=== PATIENT | female | born 1955 | race Caucasian/White ===

== ENCOUNTER 2018-10-29 05:49 | Inpatient (IN) | payer MEDICARE | END 2018-10-30 15:05 | disposition home or self-care (01) | LOC: PAS IN 05:49 → ORTHO 4S 12:25 | PROC: 0RRK0JZ Replacement of Left Shoulder Joint with Synthetic Substitute, Open Approach (ICD-10-PCS; principal; 2018-10-29 08:22) | PROC: 0LS40ZZ Reposition Left Upper Arm Tendon, Open Approach (ICD-10-PCS; 2018-10-29 08:22) | DX: M19.012 Primary osteoarthritis, left shoulder (principal); D62 Acute posthemorrhagic anemia ==

== ENCOUNTER 2025-01-06 10:48 | Outpatient (CLI) | payer MEDICARE ==
[~2025-01-06 10:48] MED LIST: ASCO500C17 PO; CALC625T31 PO; CHOL400T14 PO; MULT-985 PO; ROSU20TA2 PO
== END 2025-01-06 23:59 | disposition home or self-care (01) ==
LOC: MRI02 10:48
PROVIDERS: ATTEND Orthopaedic Surgery
DX: S83.412A Sprain of medial collateral ligament of left knee, initial encounter (principal); M17.12 Unilateral primary osteoarthritis, left knee; M25.562 Pain in left knee; X58.XXXA Exposure to other specified factors, initial encounter; Y93.89 Activity, other specified; Y92.89 Other specified places as the place of occurrence of the external cause; Y99.8 Other external cause status; M25.462 Effusion, left knee; M94.262 Chondromalacia, left knee
CPT/HCPCS: 73721